=== PATIENT | male | born 1970 | race Two or more races ===

== ENCOUNTER 2020-12-19 08:00 | Outpatient (CLI) | payer OTHER ==
[~2020-12-19 08:00] MED LIST: GABAPENTIN100 MG PO
== END 2020-12-19 08:15 | disposition home or self-care (01) ==
LOC: PPH VACUNA 08:00
PROVIDERS: ATTEND Emergency Medicine Pediatric Emergency Medicine
DX: Z23 Encounter for immunization (principal)

== ENCOUNTER → 2021-10-22 | Outpatient (CLI) | payer OTHER | END | disposition home or self-care (01) | LOC: NUCLEAR 07:00 | PROVIDERS: ATTEND Internal Medicine Cardiovascular Disease | DX: R07.89 Other chest pain (principal) | CPT/HCPCS: 78452; 93017; A9500 ==

== ENCOUNTER 2022-04-10 | Outpatient (CLI) | payer OTHER | END 2022-04-10 16:02 | disposition home or self-care (01) | LOC: PPH VACUNA | PROVIDERS: ATTEND Emergency Medicine Pediatric Emergency Medicine | DX: Z23 Encounter for immunization (principal) ==

== ENCOUNTER 2022-04-10 09:25 | Outpatient (CLI) | payer OTHER | END 2022-04-10 09:42 | disposition home or self-care (01) | LOC: RAD 09:25 | PROVIDERS: ATTEND Orthopaedic Surgery | DX: M48.06 Spinal stenosis, lumbar region (principal); M54.16 Radiculopathy, lumbar region ==

== ENCOUNTER → 2022-04-10 10:59 | Outpatient (CLI) | payer OTHER | END | disposition home or self-care (01) | LOC: LAB 10:59 | PROVIDERS: ATTEND Orthopaedic Surgery | DX: E55.9 Vitamin D deficiency, unspecified (principal); M48.06 Spinal stenosis, lumbar region; M54.16 Radiculopathy, lumbar region; D64.9 Anemia, unspecified; I10 Essential (primary) hypertension; D68.9 Coagulation defect, unspecified; N39.0 Urinary tract infection, site not specified ==

== ENCOUNTER 2022-04-15 12:57 | Outpatient (CLI) | payer OTHER | END 2022-04-15 12:59 | disposition home or self-care (01) | LOC: NUCLEAR 12:57 | PROVIDERS: ATTEND Orthopaedic Surgery | DX: M85.89 Other specified disorders of bone density and structure, multiple sites (principal); M54.16 Radiculopathy, lumbar region; M48.061 Spinal stenosis, lumbar region without neurogenic claudication ==